=== PATIENT | female | born 1950 | race Caucasian/White ===

== ENCOUNTER 2016-08-05 11:22 | Emergency (ER) | payer OTHER ==
[2016-08-05 11:59] VITALS: BP 167/79; PULSE 88; RESP 20; TEMP 100.9; O2SAT 96
[2016-08-05] MEDS ORDERED: IBUPROFEN 600 MG TAB PO ONE (12:01)
[2016-08-05] MEDS ORDERED: ACETAMINOPHEN 325 MG TAB ONE (12:17)
[2016-08-05] MEDS ORDERED: ACETAMINOPHEN 325 MG TAB PO ONE (12:22)
--- NOTE | 2016-08-05 12:47 | EDPHY ---
H & P Time Seen by Provider: 08/05/16 12:45 HPI/ROS: Chief complaint. Cough, fever, sore throat HPI. 65-year-old female with cough fever sore throat and achiness for 2 days. 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 Did get a flu shot. No shortness of breath or chest pain. No vomiting. ROS Constitutional. Fever Eyes. no problems with vision ENT. Sore throat Cardiovascular. no chest pain Respiratory. Cough Abdominal. no abdominal pain, no nausea/vomiting, no diarrhea . no problems urinating MS. no calf pain/swelling, no neck/back pain, no joint pain Skin. no rash Lymph. no swollen glands Neuro. no headache, no dizziness, no difficulty walking or with speech Past Medical/Surgical History: Hypertension Social History: , nonsmoker, no alcohol Smoking Status: Never smoked Physical Exam: General Appearance: Alert well-developed female mild distress vital signs show initial temp 38.3degrees Eyes: Pupils equal and round no pallor or injection. ENT, tympanic membranes normal pharynx slightly injected without exudate. Mucous membranes are moist Respiratory: No retractions and mild inspiratory expiratory rhonchi Cardiovascular: Regular rate and rhythm. Gastrointestinal: Abdomen is soft and nontender, no masses, bowel sounds normal. Neurological: Awake and alert, sensory and motor exams grossly normal. Skin: Warm and dry, no rashes. Musculoskeletal: Neck is supple nontender. Extremities symmetrical, full range of motion. Psychiatric: Patient is oriented X 3, there is no agitation. Constitutional: Initial Vital Signs Temperature (C) 38.3 C 08/05/16 11:54 Heart Rate 88 08/05/16 11:54 Respiratory Rate 20 08/05/16 11:54 Blood Pressure 167/79 H 08/05/16 11:54 O2 Sat (%) 96 08/05/16 11:54 O2 Delivery Mode Room Air Allergies/Adverse Reactions: erythromycin base [Erythromycin Base] Adverse Reaction (Intermediate, Verified 08/05/16 11:59) Vomiting Home Medications: Medication Instructions Recorded AMLODIPINE BESYLATE/BENAZEPRIL 1 each PO DAILY 09/09/11 [Lotrel 10-20 mg] Quinapril HCl [Accupril] 10 mg PO 09/09/11 Benzonatate [Tessalon Pearles (RX)] 100 mg PO TID PRN #14 cap 08/05/16 FENOFIBRATE 08/05/16 Metformin HCl 08/05/16 Oseltamivir Phosphate [Tamiflu 75 75 mg PO BID #10 cap 08/05/16 mg (*)] Potassium 08/05/16 Medical Decision Making ED Course/Re-evaluation: Flu swab is positive Patient and I discussed treatment plan including criteria for return importance of follow-up and further evaluation. She expresses understanding and agreement Differential Diagnosis: I considered viral syndrome, pneumonia, influenza - Data Points Laboratory Results: 08/05/16 12:05 Influenza Typ A,B (DFA) POSITIVE FOR FLU A H (NEGATIVE) Departure - Departure Disposition: Home, Routine, Self-Care Clinical Impression: Influenza Condition: Good Instructions: Influenza (ED) Additional Instructions: Tylenol 1000 mg every 4-6 hours, ibuprofen 600 mg every 6 hours as needed for fever. Drink plenty of fluids and stay hydrated. Tamiflu for influenza treatment. Tessalon Perles for cough. Recheck in 2-3 days if not improving Referrals: KEESHA GARCIA [Primary Care Provider] - 2-3 days, if not improved Prescriptions: Oseltamivir Phosphate [Tamiflu 75 mg (*)] 75 mg PO BID #10 cap Benzonatate [Tessalon Pearles (RX)] 100 mg PO TID PRN #14 cap PRN Reason: Cough, Moderate
== END 2016-08-05 13:03 | disposition home or self-care (01) ==
LOC: CED 11:22
DX: J11.1 Influenza due to unidentified influenza virus with other respiratory manifestations (principal); I10 Essential (primary) hypertension
CPT/HCPCS: 87400-PO; G0463-PO

== ENCOUNTER → 2017-03-01 | Outpatient (CLI) | payer OTHER | LOC: BRMIMAGING 08:13 | PROVIDERS: ATTEND Family Medicine | DX: Z12.31 Encounter for screening mammogram for malignant neoplasm of breast (principal) | CPT/HCPCS: G0202 ==

== ENCOUNTER → 2018-03-04 | Outpatient (CLI) | payer OTHER | LOC: BRMIMAGING 14:38 | PROVIDERS: ATTEND Family Medicine | DX: Z12.31 Encounter for screening mammogram for malignant neoplasm of breast (principal) ==